=== PATIENT | male | born 1960 | race Caucasian/White ===

== ENCOUNTER 2018-04-22 20:00 | Inpatient (IN) | payer OTHER ==
[~2018-04-22] VITALS: Ht 167.6 cm; Wt 87.5 kg
[2018-04-28] MEDS ORDERED: CEFDINIR300 MG PO (12:49)
[2018-04-28] MEDS ORDERED: ZITHROMAX500 MG PO (12:50)
[2018-04-28] MEDS ORDERED: MEDROLPACK PO (12:50)
[2018-04-28] MEDS ORDERED: ZANTAC150 MG PO (12:51)
[2018-04-28] MEDS ORDERED: INTESTINEX680 M1 PO (12:51)
== END 2018-04-28 14:30 | disposition home or self-care (01) | DRG 195 ==
LOC: ER 20:00 → MEDJ 04-23 10:58
PROC: 3E0F7GC Introduction of Other Therapeutic Substance into Respiratory Tract, Via Natural or Artificial Opening (ICD-10-PCS; 2018-04-23)
PROC: 4A033R1 Measurement of Arterial Saturation, Peripheral, Percutaneous Approach (ICD-10-PCS; 2018-04-23)
PROC: 8E0ZXY6 Isolation (ICD-10-PCS; 2018-04-23)
PROC: BW24ZZZ Computerized Tomography (CT Scan) of Chest and Abdomen (ICD-10-PCS; principal; 2018-04-28)
DX: J10.1 Influenza due to other identified influenza virus with other respiratory manifestations (principal); R09.02 Hypoxemia; I10 Essential (primary) hypertension; J20.9 Acute bronchitis, unspecified

== ENCOUNTER 2023-05-27 05:55 | Day surgery (SDC) | payer OTHER ==
[2023-05-21 08:45] LABS: HEMATOCRIT 43.1 % (39.0-48.0); HEMOGLOBIN 15.2 g/dL (13-16.00); MEAN CELL VOLUME 89.3 fL (80.0-100.00); MEAN CORPUSCULAR HEMOGLOBIN 31.4 pg (27.00-32.0); MEAN CORPUSCULAR HGB CONC 35.2 g/dl (32.0-36.0); PLATELET COUNT 226 K/uL (150-450); RED BLOOD COUNT 4.83 M/uL (4.00-6.00); RED CELL DISTRIBUTION WIDTH 12.8 % (11.5-14.5)
[2023-05-21 08:47] LABS: PH,URINE 6.5 (5.0-8.0); URINE APPEARANCE Clear; URINE BILIRRUBIN Negative (NEGATIVE); URINE BLOOD Negative; URINE COLOR Yellow; URINE GLUCOSE Negative (NEGATIVE); URINE LEUKOCYTE Negative; URINE NITRATE Negative; URINE PROTEIN Negative (NEGATIVE)
[2023-05-21 08:51] LABS: URINE WBC 2.1 uL (0.0-23.2)
[2023-05-21 08:56] LABS: URINE BACTERIA 3.7 uL (0.0-1933); URINE EPITHELIAL CELLS 0.9 uL (0.0-38.8); URINE RBC 0.4 uL (0.0-20.8)
[2023-05-21 09:19] LABS: INR 0.99; PARTIAL THROMBOPLASTIN TIME 27.8 SECONDS (22.0-34.0); PROTHROMBIN TIME 10.4 SECONDS (9.0-11.5)
[2023-05-21 09:27] LABS: CALCIUM 9.2 mg/dL (8.5-10.1); CREATININE SERUM 0.91 mg/dL (0.70-1.30); GFR 84.15; POTASSIUM 3.5 mEq/L (3.5-5.1)
[~2023-05-27 05:55] MED LIST: CEFDINIR300 MG PO; COZAAR100 MG PO; ECOTRIN81 MG PO; HYDRALAZINE HCL50 MG PO; INTESTINEX680 M1 PO; LOVAZA PO; MEDROLPACK PO; ZANTAC150 MG PO; ZITHROMAX500 MG PO
[2023-05-27] MEDS ORDERED: PERCOCET 5-3251 EACH PO (11:59)
[2023-05-27] MEDS ORDERED: NEURONTIN300 MG PO (11:59)
[2023-05-27] MEDS ORDERED: POLY119PG PO (11:59)
== END 2023-05-27 13:55 | disposition home or self-care (01) ==
LOC: CIR.AMB 05:55
PROVIDERS: ATTEND Surgery
DX: K42.0 Umbilical hernia with obstruction, without gangrene (principal); Z20.822 Contact with and (suspected) exposure to COVID-19; I10 Essential (primary) hypertension

== ENCOUNTER 2023-08-14 15:07 | Emergency (ER) | payer OTHER ==
[~2023-08-14] VITALS: Ht 167.6 cm; Wt 86.2 kg
[~2023-08-14 15:07] MED LIST changes: +NEURONTIN300 MG PO; +PERCOCET 5-3251 EACH PO; +POLY119PG PO
[2023-08-14 16:43] LABS: HEMATOCRIT 45.8 % (39.0-48.0); HEMOGLOBIN 15.8 g/dL (13-16.00); MEAN CELL VOLUME 88.4 fL (80.0-100.00); MEAN CORPUSCULAR HEMOGLOBIN 30.5 pg (27.00-32.0); MEAN CORPUSCULAR HGB CONC 34.5 g/dl (32.0-36.0); PLATELET COUNT 171 K/uL (150-450); RED BLOOD COUNT 5.18 M/uL (4.00-6.00); RED CELL DISTRIBUTION WIDTH 13.6 % (11.5-14.5)
[2023-08-14 17:05] LABS: ALBUMIN 3.6 gm/dL (3.4-5.0); BILIRUBIN TOTAL 0.85 mg/dL (0.3-1.2); CALCIUM 8.8 mg/dL (8.5-10.1); CREATININE SERUM 1.31 mg/dL (0.70-1.30); GFR 55.26; GLOBULINA 4.3 G/DL (2.4-3.5); POTASSIUM 3.01 mEq/L (3.5-5.1); TOTAL PROTEIN 7.9 gm/dL (6.4-8.2)
== END 2023-08-14 19:12 | disposition home or self-care (01) ==
LOC: ER 15:07
PROVIDERS: General Practice
DX: K52.89 Other specified noninfective gastroenteritis and colitis (principal); R11.2 Nausea with vomiting, unspecified

== ENCOUNTER 2025-06-22 10:32 | Inpatient (IN) | payer OTHER ==
[~2025-06-22] VITALS: Ht 167.6 cm; Wt 84.8 kg
[2025-06-22] MEDS ORDERED: BIOTINEX1 EACH (11:12)
[2025-06-22] MEDS ORDERED: PROTONIX40 M1 (11:12)
[2025-06-22] MEDS ORDERED: LOVAZA1 GM (11:13)
[2025-06-22] MEDS ORDERED: METRONIDAZOLE500 MG (11:13)
--- NOTE | 2025-06-22 11:17 | NUR ---
PACIENTE MASCULINO ALERTA Y ORIENTADO X3. ACOMPANADO DE FAMILIAR. PACIENTE REFERIDO POR DR WEN. REFIERE DOLOR EN EL LADO DERECHO DE LA URI. SE OBSERVA AREA ENROJECIDA. SE NOTIFICA AL DR MOORE. SE MIDE SIGNOS VITALES Y SE UBICA
[2025-06-22] MEDS ORDERED: FAMOTIDINE/PF 20 MG/2 ML VIAL IV STA (11:26)
[2025-06-22] MEDS ORDERED: 0.9 % SODIUM CHLORIDE 1,000 ML IV STA (11:26)
[2025-06-22] MEDS ORDERED: DEXAMETHASONE SODIUM PHOSPHATE 4 MG/ML VIAL IM STA (11:26)
[2025-06-22] MEDS ORDERED: CEFTRIAXONE SODIUM 2,000 MG VIAL ONE (11:30)
[2025-06-22] MEDS ORDERED: DEXAMETHASONE SODIUM PHOSPHATE 4 MG/ML VIAL ONE (11:30)
[2025-06-22] MEDS ORDERED: CEFTRIAXONE SODIUM 2,000 MG VIAL IV ONE (11:30)
[2025-06-22] MEDS ORDERED: FAMOTIDINE/PF 20 MG/2 ML VIAL ONE (11:31)
--- NOTE | 2025-06-22 11:55 | NUR ---
SE REALIZA LAB Y SE ADMINISTRA TX PATRICIO ORDEN MEDICA BAJO MEDIDAS ASEPTICAS. SE ORIENTA PTE QUIEN REFIERE ENTENDER Y ACEPTAR. SE NOTIFICA A SECRETARIA GAETANO SOBRE ESTUDIOS PENDIENTES Y REFIERE NOTIFICAR
[2025-06-22 11:59] LABS: BASO % 0.5 % (0.1-1.2); EOS # 0.19 (0.04-0.54); EOS % 2.4 % (0.7-7.0); LYMPH # 0.87 (1.18-3.74); LYMPH % 11.2 % (19.3-53.1); MEAN PLATELET VOLUME 10.50 fl (9.4-12.4); MONO # 0.85 (0.24-0.82); MONO % 10.9 % (4.7-12.5); NEUT # 5.82 (1.56-6.13); NEUT % 74.7 % (34.0-71.1); RED CELL DISTRIBUTION WIDTH 12.3 % (11.6-14.4)
[2025-06-22 12:14] LABS: ERYTHROCYTE SEDIMENTATION RATE 13 mm/hr (0-20)
[2025-06-22 12:27] LABS: BUN CREA RATIO 13 (7.0-25.0); CREATININE SERUM 0.88 mg/dL (0.70-1.30); GFR 86.91; GLUCOSE FASTING 112 mg/dL (65-100); INR 1.03; OSMOLALITY SERUM 280 MOSM/KG (275-295)
[2025-06-22] MEDS ORDERED: VANCOMYCIN HCL 1,000 MG VIAL IV ONE (14:00)
[2025-06-22] MEDS ORDERED: VANCOMYCIN HCL 1,000 MG VIAL ONE (14:08)
[2025-06-22] MEDS ORDERED: SODIUM CHLORIDE 0.45 % 1,000 ML IV SCH (15:45)
[2025-06-22] MEDS ORDERED: ONDANSETRON HCL 2 MG/ML VIAL IV PRN (16:00)
[2025-06-22] MEDS ORDERED: GABAPENTIN 100 MG CAPSULE PO SCH (17:00)
[2025-06-22 20:37] VITALS: BP 182/84; O2SAT 94
[2025-06-23 03:29] VITALS: BP 155/85; O2SAT 97
[2025-06-23 06:18] LABS: BASO % 0.6 % (0.1-1.2); EOS # 0.04 (0.04-0.54); EOS % 0.4 % (0.7-7.0); LYMPH # 0.69 (1.18-3.74); LYMPH % 6.7 % (19.3-53.1); MEAN PLATELET VOLUME 12.10 fl (9.4-12.4); MONO # 0.84 (0.24-0.82); MONO % 8.1 % (4.7-12.5); NEUT # 8.71 (1.56-6.13); NEUT % 84.0 % (34.0-71.1); RED CELL DISTRIBUTION WIDTH 12.2 % (11.6-14.4)
[2025-06-23 06:52] LABS: INR 1.05
[2025-06-23 07:19] LABS: ALT/SGPT 44 U/L (12-78); AST/SGOT 35 U/L (15-37); BILIRUBIN TOTAL 0.58 mg/dL (0.3-1.2); BUN CREA RATIO 17 (7.0-25.0); CHOL HDL RATIO 3.0 (0-5.0); CREATININE SERUM 0.92 mg/dL (0.70-1.30); GFR 82.57; GLOBULINA 3.5 G/DL (2.4-3.5); GLUCOSE FASTING 111 mg/dL (65-100); HDL 44 mg/dl (40-60); LDL 75 mg/dl (0-130); OSMOLALITY SERUM 285 MOSM/KG (275-295); PROSTATIC SPECIFIC ANTIGEN 0.859 NG/ML (0.010-4.00); TSH 0.482 uIU/mL (0.358-3.74); VLDL 15 (0-39)
[2025-06-23 07:35] LABS: ERYTHROCYTE SEDIMENTATION RATE 11 mm/hr (0-20)
[2025-06-23] MEDS ORDERED: TRAMADOL HCL 50 MG TABLET PO PRN (08:30)
[2025-06-23] MEDS ORDERED: ASPIRIN 81 MG TABLET.EC PO SCH (09:00)
[2025-06-23] MEDS ORDERED: NEOMYCIN/BACITRACIN/POLYMYXINB 3.5 GM OINT..GM. OP SCH (09:00)
[2025-06-23] MEDS ORDERED: CEFTRIAXONE SODIUM 2,000 MG VIAL IV SCH (09:00)
[2025-06-23] MEDS ORDERED: LOSARTAN POTASSIUM 50 MG TABLET PO SCH (09:00)
[2025-06-23] MEDS ORDERED: CEFTRIAXONE SODIUM 1,000 MG VIAL IV SCH (09:00)
[2025-06-23] MEDS ORDERED: AMLODIPINE BESYLATE 5 MG TABLET PO SCH (09:00)
[2025-06-23] MEDS ORDERED: ENOXAPARIN SODIUM 40 MG/0.4 ML SYRINGE SUBCUTANEO SCH (09:00)
[2025-06-23] MEDS ORDERED: ATORVASTATIN CALCIUM 20 MG TABLET PO SCH (09:00)
[2025-06-23] MEDS ORDERED: VANCOMYCIN HCL 1,000 MG VIAL IV SCH (09:00)
[2025-06-23] MEDS ORDERED: PANTOPRAZOLE SODIUM 40 MG TABLET.DR PO SCH (09:00)
[2025-06-23 10:26] VITALS: BP 138/82; O2SAT 99
[2025-06-23] MEDS ORDERED: ACYCLOVIR SODIUM 7MG/ML REDILUIDO IV SCH (17:00)
[2025-06-24 01:05] VITALS: BP 138/82; O2SAT 96
[2025-06-24 06:17] LABS: URINE APPEARANCE Cloudy; URINE BILIRRUBIN Small (NEGATIVE); URINE BLOOD Large; URINE COLOR Dark Yellow; URINE GLUCOSE Negative (NEGATIVE); URINE KETONE 15 (NEGATIVE); URINE LEUKOCYTE Trace; URINE NITRATE Negative; URINE PROTEIN 30 (NEGATIVE); URINE UROBILINOGEN 0.2 E.U./dl
[2025-06-24 06:21] LABS: URINE BACTERIA 78.9 uL (0.0-1933); URINE EPITHELIAL CELLS 29.1 uL (0.0-38.8); URINE WBC 23.7 uL (0.0-23.2)
[2025-06-24 06:29] LABS: TYPE CELLS RENAL TUBULAR; URINE CAST 0.70 uL (0.0-1.40)
[2025-06-24] MEDS ORDERED: METHYLPREDNISOLONE SOD SUCC 40 MG VIAL IV SCH (09:00)
[2025-06-24 10:25] VITALS: BP 137/87; O2SAT 98
[2025-06-24 17:51] VITALS: BP 160/80; O2SAT 96
[2025-06-24] MEDS ORDERED: LINEZOLID 600 MG TABLET PO SCH (21:00)
[2025-06-24] MEDS ORDERED: MOMETASONE FUROATE 17GM SPRAY NASAL SCH (21:00)
[2025-06-24] MEDS ORDERED: LORATADINE 10 MG TABLET PO SCH (21:00)
[2025-06-24] MEDS ORDERED: CLONAZEPAM 0.5 MG TABLET PO ONE (21:00)
[2025-06-25] MEDS ORDERED: PIPERACILLIN/TAZOBACTAM SODIUM 3.375 GM in DEXTROSE 5 % IN WATER 100 ML IV SCH (02:00)
[2025-06-25 02:31] VITALS: BP 171/71; O2SAT 96
[2025-06-25 07:46] LABS: BASO % 0.1 % (0.1-1.2); EOS # 0.00 (0.04-0.54); EOS % 0.0 % (0.7-7.0); LYMPH # 1.17 (1.18-3.74); LYMPH % 12.9 % (19.3-53.1); MEAN PLATELET VOLUME 11.00 fl (9.4-12.4); MONO # 0.51 (0.24-0.82); MONO % 5.6 % (4.7-12.5); NEUT # 7.37 (1.56-6.13); NEUT % 81.1 % (34.0-71.1); RED CELL DISTRIBUTION WIDTH 12.0 % (11.6-14.4)
[2025-06-25 08:15] LABS: ALT/SGPT 33.0 U/L (12-78); AST/SGOT 25.0 U/L (15-37); BILIRUBIN TOTAL 0.64 mg/dL (0.3-1.2); BUN CREA RATIO 17.0 (7.0-25.0); CREATININE SERUM 1.05 mg/dL (0.70-1.30); GFR 70.89; GLOBULINA 3.7 G/DL (2.4-3.5); GLUCOSE FASTING 143.0 mg/dL (65-100); OSMOLALITY SERUM 278.0 MOSM/KG (275-295)
[2025-06-25 10:07] VITALS: BP 144/86; O2SAT 98
[2025-06-25] MEDS ORDERED: MOMETASONE FUROATE 17GM SPRAY NASAL SCH (17:00)
[2025-06-25 18:27] VITALS: BP 122/75; O2SAT 96
[2025-06-26 01:11] VITALS: BP 109/76; O2SAT 94
[2025-06-26 08:28] VITALS: BP 128/76; O2SAT 94
[2025-06-26 21:34] VITALS: BP 90/57
[2025-06-27 00:53] VITALS: BP 113/73; O2SAT 98
[2025-06-27 10:39] VITALS: BP 130/86; O2SAT 98
[2025-06-27] MEDS ORDERED: LACTOBACILLUS ACIDOPHILUS 1 CAP CAP PO SCH (17:00)
[2025-06-27 19:07] VITALS: BP 119/79
[2025-06-28 01:51] VITALS: BP 125/78; O2SAT 96
[2025-06-28 09:14] VITALS: BP 150/89; O2SAT 97
[2025-06-28 21:53] VITALS: BP 145/95; O2SAT 20
[2025-06-29 01:45] VITALS: BP 122/84; O2SAT 98
[2025-06-29 08:06] LABS: BASO % 0.4 % (0.1-1.2); EOS # 0.09 (0.04-0.54); EOS % 0.8 % (0.7-7.0); LYMPH # 3.97 (1.18-3.74); LYMPH % 36.7 % (19.3-53.1); MEAN PLATELET VOLUME 10.40 fl (9.4-12.4); MONO # 0.81 (0.24-0.82); MONO % 7.5 % (4.7-12.5); NEUT # 5.88 (1.56-6.13); NEUT % 54.2 % (34.0-71.1); RED CELL DISTRIBUTION WIDTH 12.5 % (11.6-14.4)
[2025-06-29 09:01] VITALS: BP 113/70; O2SAT 96
[2025-06-29 09:07] LABS: ALT/SGPT 46.0 U/L (12-78); AST/SGOT 36.0 U/L (15-37); BILIRUBIN TOTAL 0.93 mg/dL (0.3-1.2); BUN CREA RATIO 19.0 (7.0-25.0); CREATININE SERUM 1.08 mg/dL (0.70-1.30); GFR 68.62; GLOBULINA 3.5 G/DL (2.4-3.5); GLUCOSE FASTING 85.0 mg/dL (65-100); OSMOLALITY SERUM 289.0 MOSM/KG (275-295)
[2025-06-29 18:36] VITALS: BP 136/80; O2SAT 98
[2025-06-30 01:31] VITALS: BP 134/84; O2SAT 98
[2025-06-30 08:31] LABS: BASO % 0.6 % (0.1-1.2); EOS # 0.35 (0.04-0.54); EOS % 3.4 % (0.7-7.0); LYMPH # 3.35 (1.18-3.74); LYMPH % 32.4 % (19.3-53.1); MEAN PLATELET VOLUME 10.60 fl (9.4-12.4); MONO # 0.87 (0.24-0.82); MONO % 8.4 % (4.7-12.5); NEUT # 5.66 (1.56-6.13); NEUT % 54.8 % (34.0-71.1); RED CELL DISTRIBUTION WIDTH 12.5 % (11.6-14.4)
[2025-06-30 08:36] LABS: ERYTHROCYTE SEDIMENTATION RATE 16 mm/hr (0-20)
[2025-06-30 08:58] VITALS: BP 124/78; O2SAT 97
[2025-06-30] MEDS ORDERED: GABAPENTIN 100 MG CAPSULE PO SCH (09:00)
[2025-06-30 15:57] LABS: BUN CREA RATIO 14 (7.0-25.0); CREATININE SERUM 1.28 mg/dL (0.70-1.30); GFR 56.40; GLUCOSE FASTING 127 mg/dL (65-100); OSMOLALITY SERUM 288 MOSM/KG (275-295)
[2025-06-30 18:18] VITALS: BP 130/84; O2SAT 97
[2025-06-30] MEDS ORDERED: PIPERACILLIN/TAZOBACTAM SODIUM 3.375 GM VIAL IV ONE (19:21)
[2025-06-30] MEDS ORDERED: GABAPENTIN 300 MG CAPSULE PO SCH (21:00)
[2025-07-01 04:04] VITALS: BP 111/77; O2SAT 94
[2025-07-01] MEDS ORDERED: POTASSIUM BICARBONATE/CIT AC 25 MEQ TABLET.EFF PO NR (08:15)
[2025-07-01] MEDS ORDERED: ZOVIRAX30 GM TOP (08:39)
[2025-07-01] MEDS ORDERED: RESTASIS1 EACH OP (08:40)
[2025-07-01] MEDS ORDERED: INTESTINEX680 M1 PO (08:48)
== END 2025-07-01 15:05 | disposition home or self-care (01) | DRG 603 ==
LOC: ER 10:33 → SEC-K 16:03 → MEDJ 16:03
PROVIDERS: General Practice; Internal Medicine Infectious Disease; ADMIT Internal Medicine; ATTEND Internal Medicine
PROC: BN25ZZZ Computerized Tomography (CT Scan) of Facial Bones (ICD-10-PCS; principal; 2025-06-22)
PROC: 8E0ZXY6 Isolation (ICD-10-PCS; 2025-06-23)
DX: L03.211 Cellulitis of face (principal); B02.39 Other herpes zoster eye disease; I27.20 Pulmonary hypertension, unspecified; I10 Essential (primary) hypertension; J06.9 Acute upper respiratory infection, unspecified